=== PATIENT | female | born 2000 ===

== ENCOUNTER 2019-08-02 14:19 | Emergency (ER) | payer BC ==
--- NOTE | 2019-08-02 15:01 | UC ---
Lower Extremity/Ankle HPI - HPI Summary HPI Summary: 18 year old female with no PMH no medications present with increased foot pain, lateral left foot near great toe x 1 month, with noted swelling past 24 hours. NO injury noted. mom with h/o hammer toe or bunion, no surgery. no prior injuries, surgeries. Not taking any medication, does not wear high heeled shoes. no other complaints, denies ankle pain - History of Current Complaint Chief Complaint: UCLowerExtremity Stated Complaint: FOOT PAIN Time Seen by Provider: 08/02/19 14:55 Hx Obtained From: Patient Hx Last Menstrual Period: [id number] ?: No Onset/Duration: Sudden Onset, Lasting Weeks, Worse Since - last night Severity Initially: Moderate Severity Currently: Moderate Pain Intensity: 4 Pain Scale Used: 0-10 Numeric Aggravating Factor(s): Standing, Ambulation Alleviating Factor(s): Rest Able to Bear Weight: Yes - Allergies/Home Medications Allergies/Adverse Reactions: Allergies Allergy/AdvReac Type Severity Reaction Status Date / Time Penicillins Allergy Rash And Verified 08/02/19 14:50 Itching Home Medications: Home Medications Norgestimate-Ethinyl Estradiol [Sprintec 28 Day Tablet] 1 each PO DAILY [History Confirmed 08/02/19] Nut.therapy For Pku, Iron No.1 [Phenex-2] 1 pow PO TID 08/02/19 [History Confirmed 08/02/19] PMH/Surg Hx/FS Hx/Imm Hx Previously Healthy: Yes - Surgical History Surgical History: Unable to Obtain/Confirm Surgery Procedure, Year, and Place: elbow X2 - Family History Known Family History: Positive: Non-Contributory - Social History Alcohol Use: Occasionally Substance Use Type: None Smoking Status (MU): Never Smoked Tobacco Review of Systems All Other Systems Reviewed And Are Negative: Yes Constitutional: Positive: Negative Musculoskeletal: Positive: Arthralgia, Edema, Myalgia Is Patient Immunocompromised?: No Physical Exam Triage Information Reviewed: Yes Appearance: Well-Appearing, No Pain Distress, Well-Nourished Vital Signs: Initial Vital Signs Temp 98.3 F 08/02/19 14:46 Pulse 65 08/02/19 14:46 Resp 16 08/02/19 14:46 BP 123/79 08/02/19 14:46 Pulse Ox 100 08/02/19 14:46 Vital Signs Reviewed: Yes Eyes: Positive: Conjunctiva Clear Musculoskeletal: Positive: Strength Intact, ROM Intact, Edema @ - minimal MTP 1st L foot, Other: - TTP over MTP 1st L foot, worse laterally, plantar surface. Mild valgus deformity noted 1st. Neurological: Positive: Alert, Other: - SITLT distal to ankle on L side Psychological: Positive: Age Appropriate Behavior Skin: Positive: Other - no open wounds or sores Lower Extremity Course/Dx - Course Course Of Treatment: radiograph- neg for fracture, slight valgus defor noted. Bursitis: - Inflammation of bursa over toe joint - Naproxen/ Alleve twice daily x 5 days consistently until GI upset to decrease inflammation - Wear wide- toes shoes, no high heels - Follow up with orthopedics within 5-10 days if no improvement - WEar wide toes shoes, no high heels to prevent further bunion - Differential Dx/Diagnosis Differential Diagnosis/HQI/PQRI: Sprain, Strain, Tendonitis, Tenosynovitis Provider Diagnosis: Bursitis, foot Discharge ED - Sign-Out/Discharge Documenting (check all that apply): Patient Departure All imaging exams completed and their final reports reviewed: Yes - Discharge Plan Condition: Good Disposition: HOME Patient Education Materials: Bunion (ED), Ankle Bursitis (ED) Referrals: Sree Funk MD [Medical Doctor] - (If no improvement within 5-10 days) No Primary Care Phys,NOPCP [Primary Care Provider] - Additional Instructions: Bursitis: - Inflammation of bursa over toe joint - Naproxen/ Alleve twice daily x 5 days consistently until GI upset to decrease inflammation - Wear wide- toes shoes, no high heels - Follow up with orthopedics within 5-10 days if no improvement - Billing Disposition and Condition Condition: GOOD Disposition: Home
== END 2019-08-02 15:35 | disposition home or self-care (01) ==
LOC: UCEAST 14:19
DX: M71.572 Other bursitis, not elsewhere classified, left ankle and foot (principal); M21.072 Valgus deformity, not elsewhere classified, left ankle; Z88.0 Allergy status to penicillin; Z82.69 Family history of other diseases of the musculoskeletal system and connective tissue
CPT/HCPCS: 99201; G0463